=== PATIENT | female | born 1975 | race African-American/Black ===

== ENCOUNTER 2018-12-09 05:16 | Emergency (ER) | payer MEDICAID ==
[~2018-12-09] VITALS: Ht 165.1 cm; Wt 106.6 kg
[2018-12-09] MEDS ORDERED: PROMETHAZINE HCL 25 MG/ML 1ML IM ONE (06:30)
[2018-12-09] MEDS ORDERED: HYDROmorphone HCL 2 MG/ML VL IM ONE (06:30)
[2018-12-09 06:38] VITALS: BP 137/80
== END 2018-12-09 07:04 | disposition home or self-care (01) ==
LOC: ER 05:16
DX: G89.29 Other chronic pain (principal); M54.5 Low back pain
CPT/HCPCS: 96372; 99283; J1170; J2550

== ENCOUNTER 2019-08-14 15:08 | Emergency (ER) | payer MEDICAID ==
[~2019-08-14] VITALS: Ht 165.1 cm; Wt 116.1 kg
[2019-08-14] MEDS ORDERED: DexAMETHasone SOD PHOS 10MG/1ML VIAL INJ IM ONE (19:00)
[2019-08-14 19:35] VITALS: BP 148/89
== END 2019-08-14 20:18 | disposition home or self-care (01) ==
LOC: ER 15:08
DX: M54.5 Low back pain (principal); F11.20 Opioid dependence, uncomplicated; G89.29 Other chronic pain
CPT/HCPCS: 96372; 99283; J1100

== ENCOUNTER 2019-11-18 11:21 | Inpatient (IN) | payer MEDICAID ==
[~2019-11-18] VITALS: Ht 165.1 cm; Wt 99.8 kg
[2019-11-18] MEDS ORDERED: MORPHINE SULFATE 4 MG/ML SYR/VIAL IV ONE (11:45)
[2019-11-18] MEDS ORDERED: ONDANSETRON HCL 4 MG/2 ML VIAL IV ONE ×2 (11:45→15:30)
[2019-11-18 12:07] LABS: Basophils # (auto) 0 10 ^3/uL (0-0.2); Basophils % (auto) 0.4 % (0.0-2.0); Eosinophils # (auto) 0.1 10 ^3/uL (0-0.8); Eosinophils % (auto) 1.4 % (0.0-7.0); Hematocrit 35.3 % (36.0-46.0); Hemoglobin 10.8 g/dL (12.2-16.2); Lymphocytes # (auto) 1.4 10 ^3/uL (0.4-5.4); Lymphocytes % (auto) 17.8 % (10.0-50.0); Mean Corpuscular Hgb Conc. 30.6 g/dL (32.0-36.0); Monocytes # (auto) 0.4 10 ^3/uL (0-1.3); Monocytes % (auto) 5.7 % (0.0-12.0); Neutrophils # (auto) 5.8 10 ^3/uL (1.6-8.6); Neutrophils % (auto) 74.7 % (37.0-80.0); Platelet Count (auto) 319 10^3/uL (140-450); Red Blood Cells 5.69 10^6/uL (4.0-5.20); Red Cell Distribution Width 19.5 % (11.8-14.3); White Blood Cell 7.7 10^3/uL (4.4-10.8)
[2019-11-18 12:18] LABS: INR 1.13 (0.9-1.15); Partial Thromboplastin Time 26.6 sec (23.64-32.05)
[2019-11-18 12:20] LABS: Albumin 3.7 g/dL (3.4-5.0); Potassium 3.8 mmol/L (3.5-5.1)
[2019-11-18 12:26] LABS: BUN/Creatinine Ratio 10.7; Bilirubin, Total 0.3 mg/dL (0.2-1.0); Total Protein 8.4 g/dL (6.4-8.2)
[2019-11-18] MEDS ORDERED: ENOXAPARIN SOD 100 MG/1 ML SYRINGE SC ONE ×2 (14:00→16:15)
[2019-11-18] MEDS ORDERED: NITROGLYCERIN 0.4 MG SL TAB SL PRN ×2 (14:30→16:00)
[2019-11-18] MEDS ORDERED: MORPHINE SULF INJ 2 MG/ML SYRINGE 1ML IV PRN (14:30)
--- NOTE | 2019-11-18 15:12 | NUR ---
Called JAVIER Bauman.
--- NOTE | 2019-11-18 15:15 | NUR ---
VASCULAR NURSEVANCE Bauman called back. Mitul made aware there's no order for diet, only medications at the [facility] are Morphine Sulf Inj for chest pain and Ntroglycerin SL for chest pain. Mitul to page Dr. Quesada to get orders. Mitul to call back for report.
[2019-11-18] MEDS ORDERED: HYDROmorphone HCL 2 MG/ML VL IV ONE (15:30)
[2019-11-18] MEDS ORDERED: LORazepam 0.5 MG TAB PO PRN (16:00)
[2019-11-18] MEDS ORDERED: ONDANSETRON HCL 4 MG/2 ML VIAL IV PRN (16:00)
[2019-11-18] MEDS ORDERED: DEXTROSE (50%) 50ML SYRG IV PRN (16:00)
--- NOTE | 2019-11-18 16:05 | NUR ---
Telemetry admit from ER [facility]MERON admitted to Telemetry unit after SBAR received. Patient oriented to Ebony Cabello RN, unit, room, bed, and unit policies regarding patient care and visiting hours. Patient now on continuous telemetry monitoring, tele box # [id number] and telemetry reading on arrival to unit is 70. Patient placed on bedside oxygen, weighed by bed scale and encouraged to call if she needs something. All questions and concerns addressed, patient verbalized understanding. Note: Patient awake, oriented x4, no acute distress noted.
[2019-11-18 16:10] VITALS: BP 127/65
--- NOTE | 2019-11-18 16:40 | NUR ---
Patient requested a sleeping pill. Dr. Quesada ordered Ambien 5mg HSPRN for insomnia.
[2019-11-18] MEDS: SODIUM CHLORIDE 0.9% 1,000 ML IV SCH (16:47)
[2019-11-18] MEDS: InsuLIN REG 1unit/0.01ml Soln (100units/ml) SC SCH ×2 (17:00→22:05)
[2019-11-18 17:04] VITALS: BP 127/65
[2019-11-18] MEDS: ACCU-CHEK COMFORT CURVE STRIP VI SCH ×2 (17:13→21:51)
[2019-11-18] MEDS: HYDROmorphone HCL 2 MG/ML VL IV PRN ×2 (17:52→21:54)
--- NOTE | 2019-11-18 17:52 | NUR ---
Patient stated her pain level at 9/10 at this time. Dilaudid 1 mg Inj given for pain as ordered.
--- NOTE | 2019-11-18 19:40 | NUR ---
Opening Shift Note Assumed care of patient, awake and alert oriented x4. No S/S of distress/SOB noted. Instructed on POC and to call for assist PRN. Bed is in lowest locked position with bed rails up x2 and call light is within reach.
[2019-11-18] MEDS: ATORVASTATIN 20 MG TAB PO SCH (21:51)
[2019-11-18] MEDS: ENOXAPARIN SOD 100 MG/1 ML SYRINGE SC SCH (21:53)
--- NOTE | 2019-11-18 21:54 | NUR ---
Pain: Patient stated her pain level at 7/10 at this time to the left leg. Pain medication given for pain as ordered according to scale.
[2019-11-18 21:58] VITALS: BP 129/77
[2019-11-18] MEDS ORDERED: hydrALAZINE HCL 20 MG/ML VL IV PRN (23:00)
[2019-11-18] MEDS: ZOLPIDEM TARTRATE 5 MG TAB PO PRN (23:58)
[2019-11-19] MEDS: HYDROmorphone HCL 2 MG/ML VL IV PRN ×6 (01:57→22:13)
--- NOTE | 2019-11-19 01:57 | NUR ---
Pain: Patient stated her pain level at 7/10 at this time to the left leg. Pain medication given for pain as ordered according to scale.
[2019-11-19] MEDS: SODIUM CHLORIDE 0.9% 1,000 ML IV SCH ×2 (04:21→16:24)
[2019-11-19 05:00] VITALS: BP 137/72
[2019-11-19 05:14] LABS: Basophils # (auto) 0 10 ^3/uL (0-0.2); Basophils % (auto) 0.3 % (0.0-2.0); Eosinophils # (auto) 0.1 10 ^3/uL (0-0.8); Eosinophils % (auto) 1.4 % (0.0-7.0); Monocytes # (auto) 0.7 10 ^3/uL (0-1.3)
[2019-11-19 05:17] LABS: Hematocrit 29.9 % (36.0-46.0); Lymphocytes # (auto) 2.9 10 ^3/uL (0.4-5.4); Lymphocytes % (auto) 35.1 % (10.0-50.0); Mean Corpuscular Hemoglobin 18.7 pg (28.0-32.0); Mean Corpuscular Hgb Conc. 30.2 g/dL (32.0-36.0); Mean Corpuscular Volume 61.9 fL (80.0-100.0); Monocytes % (auto) 8.4 % (0.0-12.0); Neutrophils # (auto) 4.5 10 ^3/uL (1.6-8.6); Neutrophils % (auto) 54.8 % (37.0-80.0); Nucleated Red Blood Cells % 0.1 %; Platelet Count (auto) 294 10^3/uL (140-450); Red Blood Cells 4.82 10^6/uL (4.0-5.20); Red Cell Distribution Width 19.1 % (11.8-14.3); White Blood Cell 8.1 10^3/uL (4.4-10.8)
[2019-11-19 05:31] LABS: % Iron Saturation 5.8 % (15-50)
[2019-11-19 05:32] LABS: Potassium 3.9 mmol/L (3.5-5.1)
[2019-11-19 05:33] LABS: INR 1.13 (0.9-1.15); Partial Thromboplastin Time 35.3 sec (23.64-32.05)
[2019-11-19 05:39] LABS: Albumin 3.1 g/dL (3.4-5.0); BUN/Creatinine Ratio 19.4; Bilirubin, Total 0.3 mg/dL (0.2-1.0); Calcium 8.3 mg/dL (8.5-10.1); Phosphorus 4.3 mg/dL (2.5-4.90); Total Protein 7.2 g/dL (6.4-8.2)
--- NOTE | 2019-11-19 06:00 | NUR ---
Pain: Patient stated her pain level at 7/10 at this time to the left leg, described as an ache. Pain medication given for pain as ordered according to scale.
[2019-11-19] MEDS: ACCU-CHEK COMFORT CURVE STRIP VI SCH ×4 (06:16→21:10)
[2019-11-19] MEDS: InsuLIN REG 1unit/0.01ml Soln (100units/ml) SC SCH ×4 (06:20→21:09)
--- NOTE | 2019-11-19 07:27 | NUR ---
Closing noted: Patient resting in bed with breaths even and unlabored. Placed specimen cup at the bedside and educated patient about need for urine specimen, patient verbalized understanding and is to call when urine is ready to be collected. Bed is in lowest locked position with bed rails up x2 and call light is within reach. Care endorsed to day shift nurse.
--- NOTE | 2019-11-19 07:35 | NUR ---
Patient in bed, awake, oriented x4. No acute distress noted.
[2019-11-19 09:05] VITALS: BP 110/64
[2019-11-19 09:15] LABS: Urine Bacteria FEW /hpf (None Seen); Urine Blood 3+ /uL (Negative); Urine Budding Yeast OCCASIONAL /hpf (None Seen); Urine Mucus FEW (None Seen); Urine Specific Gravity 1.028 (1.001-1.035); Urine WBC 5 /hpf (0 - 5)
[2019-11-19 09:33] LABS: Alcohol, Urine < 3.0 mg/dL (0-5); Amphetamine Screen, Urine NEGATIVE (NEGATIVE); Barbiturate Scree,Urine NEGATIVE (NEGATIVE); Benzodiazephine Screen, Urine NEGATIVE (NEGATIVE); Cannabinoid Screen, Urine NEGATIVE (NEGATIVE); Cocaine Screen, Urine NEGATIVE (NEGATIVE); Opiate Scree,Urine POSITIVE (NEGATIVE); Phencyclidine Screen, Urine NEGATIVE (NEGATIVE)
[2019-11-19] MEDS: ENOXAPARIN SOD 100 MG/1 ML SYRINGE SC SCH ×2 (09:54→21:09)
[2019-11-19] MEDS: ASPirin 81 mg TAB PO SCH (09:54)
--- NOTE | 2019-11-19 09:54 | NUR ---
Patient stated her back and thigh pain at 9/10 at this time. Dilaudid Inj 1 mg given for severe pain.
[2019-11-19] MEDS: DOCUSATE SOD 100 MG CAP PO SCH (09:58)
--- NOTE | 2019-11-19 12:20 | NUR ---
Patient stated she does not like the Cardiac diet, requested if the doctor will chainge it to
--- NOTE | 2019-11-19 12:20 | NUR ---
if Dr. Chi will change the diet to Consistent Carb/Diabetic diet instead.
--- NOTE | 2019-11-19 12:24 | NUR ---
Paged Dr. Chi.
[2019-11-19 13:00] VITALS: BP 116/67
--- NOTE | 2019-11-19 14:05 | NUR ---
Patient stated her leg pain level at 7/10 at this time. Dilaudid Inj given for pain as ordered.
[2019-11-19] MEDS ORDERED: LORazepam 0.5 MG TAB PO PRN (14:30)
--- NOTE | 2019-11-19 14:50 | NUR ---
Andre Avina has seen the patient for GI Consult. MD is aware patient on Lovenox. No recommended GI procedure at this time.
--- NOTE | 2019-11-19 15:06 | NUR ---
Spoke with Dr. Chi regarding the patient's requested for Diabetic diet and patient stated she gets itching and chest heaviness when she gets contrast. Dr. Chi ordered to cancel the CT Angio Chest. ordered NM VQ Scan and Consistent Carb/Diabetic diet.
[2019-11-19 16:47] VITALS: BP 121/75
[2019-11-19] MEDS ORDERED: WARFARIN SODIUM 10 MG TAB PO ONE (17:00)
--- NOTE | 2019-11-19 19:30 | NUR ---
Opening Shift Note Assumed care of patient. Patient is awake and alert. No S/S of distress/SOB. Instructed on POC and to call for assist PRN, will continue to monitor for changes Q1hr and PRN. Bed locked in lowest position and bed rails up x2. Call light within reach.
[2019-11-19] MEDS ORDERED: WARF5TAB PO (19:32)
[2019-11-19] MEDS ORDERED: ZOLP10TA PO (19:32)
[2019-11-19] MEDS ORDERED: LISI2.5T47 PO (19:32)
[2019-11-19] MEDS: ATORVASTATIN 20 MG TAB PO SCH (21:08)
[2019-11-19 22:00] VITALS: BP 149/87
[2019-11-19] MEDS: ZOLPIDEM TARTRATE 5 MG TAB PO PRN (23:30)
[2019-11-20] MEDS: HYDROmorphone HCL 2 MG/ML VL IV PRN ×3 (02:16→10:25)
[2019-11-20 05:00] VITALS: BP 118/66
[2019-11-20 06:13] LABS: Basophils # (auto) 0 10 ^3/uL (0-0.2); Basophils % (auto) 0.3 % (0.0-2.0); Eosinophils # (auto) 0.1 10 ^3/uL (0-0.8); Eosinophils % (auto) 1.7 % (0.0-7.0); Hematocrit 32.3 % (36.0-46.0); Lymphocytes # (auto) 2.5 10 ^3/uL (0.4-5.4); Lymphocytes % (auto) 37.9 % (10.0-50.0); Mean Corpuscular Hemoglobin 18.6 pg (28.0-32.0); Mean Corpuscular Hgb Conc. 27.8 g/dL (32.0-36.0); Mean Corpuscular Volume 67.1 fL (80.0-100.0); Monocytes # (auto) 0.5 10 ^3/uL (0-1.3); Monocytes % (auto) 7.3 % (0.0-12.0); Neutrophils # (auto) 3.5 10 ^3/uL (1.6-8.6); Neutrophils % (auto) 52.8 % (37.0-80.0); Nucleated Red Blood Cells % 0.1 %; Platelet Count (auto) 245 10^3/uL (140-450); Red Blood Cells 4.82 10^6/uL (4.0-5.20); Red Cell Distribution Width 19.9 % (11.8-14.3); White Blood Cell 6.6 10^3/uL (4.4-10.8)
[2019-11-20] MEDS: ACCU-CHEK COMFORT CURVE STRIP VI SCH ×3 (06:24→17:00)
[2019-11-20 06:28] LABS: INR 1.07 (0.9-1.15)
[2019-11-20 06:38] LABS: Potassium 4.2 mmol/L (3.5-5.1)
[2019-11-20] MEDS: InsuLIN REG 1unit/0.01ml Soln (100units/ml) SC SCH ×3 (06:39→17:00)
[2019-11-20 06:48] LABS: BUN/Creatinine Ratio 17.8; Calcium 8.4 mg/dL (8.5-10.1)
--- NOTE | 2019-11-20 07:30 | NUR ---
Opening Shift Note Assumed care of patient from noc shift rn, awake and alert. No S/S of distress/SOB, reports 4/10 pain and this time but wants to wait until she could have PRN Dilaudid at 1025. Plan of care discussed, encouraged to call for assist PRN. Bed in locked and lowest position, side rales up x2, call light and phone within reach. Will continue to monitor for changes Q1hr and PRN.
[2019-11-20] MEDS: SODIUM CHLORIDE 0.9% 1,000 ML IV SCH (07:54)
[2019-11-20 08:00] VITALS: BP 148/86
[2019-11-20] MEDS: ASPirin 81 mg TAB PO SCH (09:18)
[2019-11-20] MEDS: PANTOPRAZOLE 40 MG TAB PO SCH ×3 (09:18→10:00)
[2019-11-20] MEDS: DOCUSATE SOD 100 MG CAP PO SCH (09:19)
[2019-11-20] MEDS: ENOXAPARIN SOD 100 MG/1 ML SYRINGE SC SCH (09:19)
[2019-11-20 09:36] VITALS: BP 148/86
[2019-11-20 13:00] VITALS: BP 139/78
[2019-11-20] MEDS ORDERED: OXYCODONE W/ ACETAMINOPHEN 5/325MG TABLET PO PRN (16:30)
[2019-11-20] MEDS ORDERED: WARFARIN SODIUM 10 MG TAB PO ONE (17:00)
--- NOTE | 2019-11-20 17:15 | NUR ---
PATIENT LEFT AMA. REFUSED TO TAKE SCHEDULED MEDICATIONS. IV ACCESS LINE DISCONTINUED. PATIENT ALERT AND ORIENTED X4 AT THIS TIME.
[2019-11-21] MEDS ORDERED: metFORMIN HYDROCHLORIDE 500 MG TAB PO SCH (17:00)
== END 2019-11-20 17:15 | disposition home or self-care (01) | DRG 197 ==
LOC: ER 11:21 → TELE 11:22 → TELE-WESTW 15:57
PROVIDERS: ADMIT Hospitalist; ATTEND Internal Medicine
DX: I82.432 Acute embolism and thrombosis of left popliteal vein (principal); E11.65 Type 2 diabetes mellitus with hyperglycemia; N92.0 Excessive and frequent menstruation with regular cycle; E66.01 Morbid (severe) obesity due to excess calories; F11.20 Opioid dependence, uncomplicated; M79.89 Other specified soft tissue disorders; D50.9 Iron deficiency anemia, unspecified; E78.5 Hyperlipidemia, unspecified; I10 Essential (primary) hypertension; Z68.36 Body mass index [BMI] 36.0-36.9, adult; Z83.3 Family history of diabetes mellitus; Z80.9 Family history of malignant neoplasm, unspecified; Z79.01 Long term (current) use of anticoagulants; Z86.711 Personal history of pulmonary embolism; Z86.718 Personal history of other venous thrombosis and embolism
CPT/HCPCS: 36415; 80048; 80053; 80061; 80307; 81001; 82728; 82962; 83036; 83540; 83550; 83735; 84100; 84443; 84702; 85025; 85045; 85610; 85730; 93971; G0378; J1815; J2405

== ENCOUNTER 2019-11-20 17:24 | Emergency (ER) | payer MEDICAID ==
[~2019-11-20] VITALS: Ht 165.1 cm; Wt 103.9 kg
[~2019-11-20 17:24] MED LIST: LISI2.5T47 PO; WARF5TAB PO; ZOLP10TA PO
[2019-11-20 21:00] VITALS: BP 145/81
== END 2019-11-20 21:05 | disposition home or self-care (01) ==
LOC: ER 17:24
DX: I82.402 Acute embolism and thrombosis of unspecified deep veins of left lower extremity (principal); D53.9 Nutritional anemia, unspecified; F11.20 Opioid dependence, uncomplicated